=== PATIENT | female | born 1965 | race African-American/Black ===

== ENCOUNTER 2019-09-19 11:22 | Day surgery (SDC) | payer BC ==
[2019-09-18 08:47] VITALS: BMI 50.3
[2019-09-19] MEDS ORDERED: KETOROLAC TROMETHAMINE 30 MG/1 ML VIAL ONE (13:51)
[2019-09-19] MEDS ORDERED: DEXAMETHASONE SOD PHOSPHATE 4 MG/1 ML VIAL ONE (13:51)
[2019-09-19] MEDS ORDERED: MIDAZOLAM HCL 2 MG/2 ML SINGLE DOSE VIAL ONE ×2 (13:51→14:10)
[2019-09-19] MEDS ORDERED: PROPOFOL 20 ML ONE (13:51)
[2019-09-19] MEDS ORDERED: ONDANSETRON 4 MG/2 ML VIAL IVPUSH PRN (14:06)
[2019-09-19] MEDS ORDERED: oxyCODONE HCL 5 MG TABLET PO PRN ×2 (14:06)
[2019-09-19] MEDS ORDERED: LACTATED RINGERS SOLUTION 1,000 ML IV SCH (14:15)
[2019-09-19] MEDS ORDERED: ACETAMINOPHEN 325 MG TABLET (FP) PO PRN (14:38)
[2019-09-19] MEDS ORDERED: IBUPROFEN 400 MG TABLET (FP) PO PRN (14:38)
--- NOTE | 2019-09-19 14:38 | HP ---
Admitting History and Physical - Admission History of Present Illness: 54 yo with hx/o postmenopausal bleeding, ultrasoudn with thickened endometrium Episode of PMB 2018 s/p hysteroscopy D&C with pathology significant for complex hyperplasia with atypia Patient lost to follow up Limitations to Obtaining History: No Limitations - Past Medical History Cardiovascular: Yes: HTN Gastrointestinal: Yes: GERD ...LMP: 03/30/12 Heme/Onc: No: Anemia - Past Surgical History Additional Past Surgical History: hysteroscopy, D&C 2018 - Smoking History Smoking history: Never smoked Have you smoked in the past 12 months: Yes Aproximately how many cigarettes per day: 0 If you are a former smoker, when did you quit?: 30YRS - Alcohol/Substance Use Hx Alcohol Use: No Home Medications - Allergies Allergies/Adverse Reactions: Allergies Allergy/AdvReac Type Severity Reaction Status Date / Time No Known Allergies Allergy Verified 11/07/16 17:20 - Home Medications Home Medications: Ambulatory Orders Pravastatin Sodium [Pravachol -] 40 mg PO HS 03/26/13 Amlodipine Bes/Olmesartan Med [Amlodipine-Olmesartan 10-20 mg] 1 each PO DAILY 05/09/18 Cholecalciferol (Vitamin D3) [Vitamin D3] 1,000 unit PO DAILY 05/09/18 Vitamin B Complex 1 each PO DAILY 09/18/19 Family Medical History Family History: Denies Review of Systems - Review of Systems Constitutional: reports: No Symptoms Cardiovascular: reports: No Symptoms Respiratory: reports: No Symptoms Gastrointestinal: reports: No Symptoms Genitourinary: reports: No Symptoms Musculoskeletal: reports: No Symptoms Integumentary: reports: No Symptoms Endocrine: reports: No Symptoms Psychiatric: reports: No Symptoms Physical Examination Vital Signs: Vital Signs Temperature 97.6 F 09/19/19 12:05 Pulse Rate 81 09/19/19 12:05 Respiratory Rate 20 09/19/19 12:05 Blood Pressure 109/77 09/19/19 12:05 O2 Sat by Pulse Oximetry (%) 96 09/19/19 12:06 Constitutional: Yes: Well Nourished, No Distress, Calm Cardiovascular: Yes: Regular Rate and Rhythm Respiratory: Yes: Regular, CTA Bilaterally Gastrointestinal: Yes: Normal Bowel Sounds, Abdomen, Obese Edema: No Psychiatric: Yes: Alert, Oriented Assessment/Plan 54 yo with PMB for hysteroscopy, D&C 1. Consents reviewed and signed 2. Routine labs reviewed 3. SCDs for DVT prophylaxis 4. No antibiotcs indicated 5. Will proceed to OR
--- NOTE | 2019-09-19 15:24 | OP ---
Operative Note - Note: Operative Date: 09/19/19 Pre-Operative Diagnosis: postmenopausal bleeding, hx/o endometrial hyperplasia with focal atypia Operation: hysteroscopy, dilation and curettage Findings: large endometrial cavity, focal blood vessels noted Post-Operative Diagnosis: Same as Pre-op Surgeon: Lexis Quinn Anesthesiologist/CATEGORY DEVELOPMENT MANAGER: Malini Melgoza Anesthesia: General Specimens Removed: endometrial curetting Estimated Blood Loss (mls): 5 Fluid Volume Replaced (mls): 650 Operative Report Dictated: Yes
[2019-09-19 16:14] VITALS: TEMP 97.6
[2019-09-19 17:50] VITALS: BP 155/81; PULSE 73
--- NOTE | 2019-09-20 08:55 | OP ---
DATE OF OPERATION: 09/19/2019 ATTENDING PHYSICIAN RESPONSIBLE FOR SIGNING REPORT: Jojo Quinn M.D. PREOPERATIVE DIAGNOSIS: Postmenopausal bleeding, prior history of endometrial hyperplasia with focal atypia in 2018. POSTOPERATIVE DIAGNOSIS: Postmenopausal bleeding, prior history of endometrial hyperplasia with focal atypia in 2018. PROCEDURE PERFORMED: Hysteroscopy, dilatation and curettage. SURGEON: Jojo Quinn M.D. ANESTHESIA: General. ANESTHESIOLOGIST: Malini Melgoza MD SPECIMENS REMOVED: Endometrial curetting. ESTIMATED BLOOD LOSS: 5 mL. FLUIDS GIVEN: 650 INDICATIONS: The patient is a 54-year-old with history of postmenopausal bleeding, prior dilatation and curettage in 2018 with endometrial hyperplasia with focal atypia, who was lost to followup. She presented with postmenopausal bleeding. She was counseled regarding observation . The risks, benefits, alternatives and complications of the procedure were discussed, including infection, bleeding, damage to surrounding organs, such as bowel and bladder, uterine perforation. She expressed understanding and was brought to the operating room. DESCRIPTION OF PROCEDURE: When anesthesia was found to be adequate, the patient was prepped and draped in the normal sterile fashion in the dorsal lithotomy position using Pramod stirrups. A weighted speculum was placed in the posterior vagina. The anterior lip of the cervix was grasped using an Allis clamp. The cervix was found to be dilated. The hysteroscope was placed in the endometrial cavity. Fluffy endometrium was noted. Blood vessels were noted. The hysteroscope was removed. Gentle sharp curetting was performed. Symptom was sent to Pathology. All instruments were removed from the patient's vagina. The patient tolerated the procedure well. Estimated blood loss was 5 mL. The patient was brought to the recovery room in stable condition. JOJO QUINN M.D. [id number]
--- NOTE | 2019-09-21 16:59 | PATH ---
Surgical Pathology Report Patient Name: ADRIANA MADISON [facility]. Rec. #: [id number] /Age/Gender: 1965 (Age: 54) / F Account: [id number] Location: [facility] SURGICAL Taken: 09/19/2019 Received: 09/20/2019 Reported: 09/21/2019 Physicians: Lexis Quinn Specimen(s) Received ENDOMETRIAL CURETTINGS Clinical History Postmenopausal bleeding, history of endometrial hyperplasia with focal atypia 05/2018 Final Diagnosis ENDOMETRIAL CURETTINGS, DILATION AND CURETTAGE: COMPLEX HYPERPLASIA WITH FOCAL ATYPIA. Electronically Signed Sis Ribera M.D. Gross Description Received in formalin labeled "endometrial curettings," is a 3.5 x 2.3 x 0.3 cm aggregate of nice-brown soft tissue fragments. The formalin is filtered and the specimen is entirely submitted in 2 cassettes. /09/20/2019 saudi09/20/2019
== END 2019-09-19 17:30 | disposition home or self-care (01) ==
LOC: JASU-SURG 11:22
PROVIDERS: ATTEND Obstetrics & Gynecology
PROC: 0UDB7ZX Extraction of Endometrium, Via Natural or Artificial Opening, Diagnostic (ICD-10-PCS; principal; 2019-09-19 13:30)
PROC: 0UJD8ZZ Inspection of Uterus and Cervix, Via Natural or Artificial Opening Endoscopic (ICD-10-PCS; 2019-09-19 13:30)
DX: N95.0 Postmenopausal bleeding (principal)
CPT/HCPCS: 86850; 86900; 86901; 88305-TC; 94760

== ENCOUNTER 2020-06-23 06:09 | Inpatient (IN) | payer BC ==
[2020-06-23] MEDS ORDERED: BUPIVACAINE HCL/PF 0.25% (2.5MG/ML) 10 ML VIAL ONE (07:10)
[2020-06-23] MEDS ORDERED: MIDAZOLAM HCL 2 MG/2 ML SINGLE DOSE VIAL ONE ×2 (07:17→07:32)
[2020-06-23] MEDS ORDERED: fentaNYL CITRATE 250 MCG/5 ML VIAL ONE (07:17)
[2020-06-23] MEDS ORDERED: PROPOFOL 20 ML ONE ×2 (07:17)
[2020-06-23] MEDS ORDERED: SUCCINYLCHOLINE CHLORIDE 200 MG/10 ML SYRINGE ONE (07:17)
[2020-06-23] MEDS ORDERED: ONDANSETRON 4 MG/2 ML VIAL ONE ×2 (07:17→10:04)
[2020-06-23] MEDS ORDERED: DEXAMETHASONE SOD PHOSPHATE 4 MG/1 ML VIAL ONE ×2 (07:17→10:04)
[2020-06-23] MEDS ORDERED: EPHEDRINE SULFATE/0.9% NACL/PF 50 MG/10 ML SYRINGE NR ONE (07:17)
[2020-06-23] MEDS ORDERED: ROCURONIUM BROMIDE 50 MG/5 ML SYRINGE ONE (07:17)
[2020-06-23] MEDS ORDERED: ceFAZolin SODIUM 1 GM VIAL ONE ×2 (07:18→08:31)
[2020-06-23 07:23] VITALS: BMI 51.1
[2020-06-23] MEDS ORDERED: ROPIVACAINE HCL 0.5% 30ML VIAL ONE (07:33)
[2020-06-23] MEDS ORDERED: BUPIVACAINE HCL/PF 0.25% (2.5MG/ML) 10 ML VIAL IJ ONE ×3 (08:48→09:54)
[2020-06-23] MEDS ORDERED: DESFLURANE GAS 240 ML BOTTLE IH ONE (08:52)
[2020-06-23] MEDS ORDERED: KETOROLAC TROMETHAMINE 30 MG/1 ML VIAL ONE (08:55)
[2020-06-23] MEDS ORDERED: GLYCOPYRROLATE 0.2 MG/1 ML VIAL ONE (09:14)
[2020-06-23] MEDS ORDERED: NEOSTIGMINE METHYLSULFATE 0.5 MG/ML - 10 ML MDV ONE (09:14)
[2020-06-23] MEDS ORDERED: FAMOTIDINE 20 MG/50 ML IVPB 20 MG/50 ML MG IVPB ONE (09:55)
[2020-06-23] MEDS ORDERED: METOCLOPRAMIDE HCL INJECTION 10 MG/2 ML VIAL ONE (09:56)
[2020-06-23] MEDS ORDERED: HYDROmorphone HCL CARPU-JECT 1 MG/1 ML DISP.SYRIN IVPB PRN (10:07)
--- NOTE | 2020-06-23 10:19 | OP ---
Operative Note - Note: Operative Date: 06/23/20 Pre-Operative Diagnosis: Morbid Obesity. Hypertension. Elevated Liver Function Tests Operation: Laparoscopic Vertical Sleeve Gastrectomy. Wedge Biopsy of Left Lobe of Liver. Oversewing of Gastric Staple Line. Diagnostic Laparoscopy Findings: Greater curve sleeve gastrectomy performed with #[address] Gastric staple line oversewn for control of hemostasis and to prevent leaks Wedge biopsy performed on enlarged left lobe of liver Post-Operative Diagnosis: Same as Pre-op (hepatomegaly) Surgeon: Steve Burks Rec Therapist: Reuben Chew Anesthesia: General Specimens Removed: Greater curve of stomach. Wedge biopsy on enlarged left lobe of liver Estimated Blood Loss (mls): 30 Operative Report Dictated: Yes
[2020-06-23] MEDS: METOCLOPRAMIDE HCL INJECTION 10 MG/2 ML VIAL IVPUSH SCH ×3 (10:35→21:21)
[2020-06-23] MEDS ORDERED: FAMOTIDINE 20 MG PREMIXED IVPB IVPB ONE (10:45)
[2020-06-23 11:11] LABS: HEMATOCRIT 42.9 % (32.4-45.2); HEMOGLOBIN 13.9 GM/dl (10.7-15.3); MCH 28.9 pg (25.7-33.7); MCHC 32.5 g/dl (32.0-36.0); MEAN CELL VOLUME 88.8 fl (80-96); MEAN PLT VOLUME 8.6 fl (7.5-11.1); PLATELET COUNT 256 K/MM3 (134-434); RBC 4.82 M/mm3 (3.60-5.2); RDW 12.1 % (11.6-15.6); WHITE BLOOD COUNT 12.2 K/mm3 (4.0-10.8)
[2020-06-23] MEDS ORDERED: HYDROmorphone HCL 0.5 MG/0.5 ML SYRINGE IVPB PRN (11:18)
[2020-06-23 11:28] LABS: ALBUMIN 3.5 g/dl (3.4-5.0); BILIRUBIN,TOTAL 0.9 mg/dl (0.2-1); CALCIUM 8.4 mg/dl (8.5-10); POTASSIUM 4.9 mmol/L (3.5-5.1); TOT PROT 6.9 g/dl (6.4-8.2)
[2020-06-23] MEDS: ONDANSETRON 4 MG/2 ML VIAL IVPUSH PRN (14:13)
[2020-06-23] MEDS: HYDROmorphone HCL/PF 1 MG/ML VIAL IVPB PRN ×2 (14:13→22:05)
[2020-06-23] MEDS: SODIUM CHLORIDE 1,000 ML IV SCH (14:18)
--- NOTE | 2020-06-23 17:18 | HP ---
Admitting History and Physical - Admission History of Present Illness: s/p sleeve - Past Medical History Cardiovascular: Yes: HTN Gastrointestinal: Yes: GERD ...LMP: 03/30/12 - Past Surgical History Past Surgical History: Yes: None - Smoking History Smoking history: Never smoked Have you smoked in the past 12 months: No Aproximately how many cigarettes per day: 0 If you are a former smoker, when did you quit?: 30YRS - Alcohol/Substance Use Hx Alcohol Use: No Home Medications - Allergies Allergies/Adverse Reactions: Allergies Allergy/AdvReac Type Severity Reaction Status Date / Time No Known Allergies Allergy Verified 11/07/16 17:20 - Home Medications Home Medications: Ambulatory Orders Cholecalciferol (Vitamin D3) [Vitamin D3] 1,000 unit PO DAILY 05/09/18 Amlodipine Bes/Olmesartan Med [Amlodipine-Olmesartan 5-40 mg] 1 each PO DAILY 06/19/20 Oxycodone HCl/Acetaminophen [Percocet 5-325 mg Tablet] 1 tab PO Q6H PRN #20 tablet MDD 4 06/23/20 Physical Examination Vital Signs: Vital Signs Temperature 98.4 F 06/23/20 11:40 Pulse Rate 92 H 06/23/20 11:40 Respiratory Rate 16 06/23/20 11:40 Blood Pressure 143/79 06/23/20 11:40 O2 Sat by Pulse Oximetry (%) 99 06/23/20 11:40 Cardiovascular: Yes: Regular Rate and Rhythm Respiratory: Yes: Regular, CTA Bilaterally Gastrointestinal: Yes: Soft, Tenderness Edema: No Labs: CBC, BMP 06/23/20 10:15 06/23/20 10:15 Problem List - Problems (1) S/P laparoscopic sleeve gastrectomy Assessment/Plan: Operative Date: 06/23/20 Pre-Operative Diagnosis: Morbid Obesity. Hypertension. Elevated Liver Function Tests Operation: Laparoscopic Vertical Sleeve Gastrectomy. Wedge Biopsy of Left Lobe of Liver. Oversewing of Gastric Staple Line. Diagnostic Laparoscopy Findings: Greater curve sleeve gastrectomy performed with #[address] Gastric staple line oversewn for control of hemostasis and to prevent leaks Wedge biopsy performed on enlarged left lobe of liver Post-Operative Diagnosis: Same as Pre-op (hepatomegaly) Surgeon: Steve Burks Embossing Machine Operator: Reuben Chew Code(s): Z98.84 - BARIATRIC SURGERY STATUS (2) HTN (hypertension) Assessment/Plan: monitor off meds Code(s): I10 - ESSENTIAL (PRIMARY) HYPERTENSION (3) GERD (gastroesophageal reflux disease) Assessment/Plan: same Code(s): K21.9 - GASTRO-ESOPHAGEAL REFLUX DISEASE WITHOUT ESOPHAGITIS (4) Obesity Code(s): E66.9 - OBESITY, UNSPECIFIED
--- NOTE | 2020-06-23 18:54 | OP ---
DATE OF OPERATION: 06/23/2020 PREOPERATIVE DIAGNOSIS: 1. Morbid obesity. 2. Hypertension. 3. Elevated liver function tests. POSTOPERATIVE DIAGNOSIS: 1. Morbid obesity. 2. Hypertension. 3. Elevated liver function tests. 4. Hepatomegaly. PROCEDURE: 1. Laparoscopic vertical sleeve gastrectomy. 2. Wedge biopsy of enlarged left lobe of liver. 3. Hepatomegaly. 4. Diagnostic laparoscopy. OPERATING SURGEON: Steve Burks MD. CRUSHER AND BLENDER OPERATOR: Reuben Chew MD. ANESTHESIA: General. OPERATIVE PROCEDURE: The patient was brought into the operating room, placed on the OR table in the supine position. All precautions were taken initially including padding for the back and the feet, and Venodyne boots were placed on both lower extremities. At that point, the abdomen was prepped and draped in the usual manner. A Veress needle was placed in the midline above the umbilicus, and a pneumoperitoneum was established. At this juncture, with direct vision with a laparoscopic camera through a trocar, a number 5 bladeless trocar in the left upper quadrant through which a trocar laparoscopic camera was placed. Under direct vision, a number 15 bladeless trocar was in the midline in the supraumbilical position, and this was followed by a number 5 bladeless trocar in the right upper quadrant and then number 5 bladeless trocar below the left costal margin. A Daija liver retractor was then placed in the epigastrium to retract the left lobe of the liver. The patient was then placed in 20-degree reverse Trendelenburg position by anesthesia. The pylorus was noted on the distal stomach, and from that point 6 cm were measured proximally. Here, the operating surgeon lifted the stomach toward the anterior abdominal wall, as the medical assistant ob gyn surgeon retracted the gastrocolic ligament inferiorly. The Ligasure device was then used to dissect the gastrocolic ligament and the short gastric vessel off the greater curve of the stomach. This continued in a superior and vertical direction until the final short gastric vessel between the superior pole of the spleen and the proximal fundus was divided. At this juncture, anesthesia advanced the number 36 bougie. This was advanced into the distal stomach or into the antrum of the stomach. With the bougie held along the lesser curvature with a guide, a series of rashida were performed with the first 2 rashida being black load rashida 6 cm in length along the bougie. This was followed by a series of purple load rashida also 6 cm in length and also along the bougie, when final staple was fired in the left upper quadrant the greater curve was now completely detached from the lesser curve. It should be noted that prior to firing rashida, both the anterior and posterior mack were checked that they were equal, and in the area of the esophagogastric junction approximately 1 to 1.5 cm serosa remained on the anterior and posterior surfaces. At this juncture, anesthesia inserted air into the orogastric tube, and saline was placed around the staple line. When anesthesia inserted air, it showed the entire stomach distended, no obstruction and no leaks were noted from the staple line. As anesthesia decompressed the stomach through the bougie tube, there were noted to be a few bleeding point on the stomach in the proximal, mid, and distal portion. Therefore, the was used to oversew the staple line from the proximal fundus all the way down to the antrum for the complete staple line. This was done for further hemostasis and also to prevent any chance of leak. This was done, hemostasis was achieved. Surgicel was then placed over the staple line and over the remaining fat and short gastric vessels that were dissected. At this juncture, attention was directed to the left lobe of the liver and noted that the patient had elevated LFTs prior to surgery. It was decided that wedge biopsy would be performed. The LigaSure device was used to dissect a triangular piece of stomach off the inferior edge of the left lobe of the liver. This was then sent off the field as specimen to pathology, and there was minor oozing from the parenchyma of the liver, but this was easily controlled with electrocautery. At this juncture, the resected greater curvature was now removed through the number 15 trocar site and sent off the field as specimen to pathology. The number 15 trocar site was closed with the endo closure device to prevent internal hernia and prevent bleeding. Under direct vision, all trocars were removed and pneumoperitoneum released. All trocar sites injected with 0.25% Marcaine, then number 15 midline trocar was closed with 3-0 Vicryl on subcutaneous tissue, then all trocar sites were closed with 4-0 Biosyn in subcuticular fashion. Dressings were applied, patient awoken from anesthesia and transferred out of the operation room to the recovery room in stable condition. ANESTHESIA: General. SURGEON: Steve Burks MD. CRUSHER AND BLENDER OPERATOR SURGEON: Reuben Chew MD. ESTIMATED BLOOD LOSS: Estimated blood loss was 30 mL. DISPOSITION: Patient transferred to recovery room in stable condition. Vandana ZAMBRANO/[id number]
[2020-06-23 20:43] LABS: HEMATOCRIT 44.4 % (32.4-45.2); HEMOGLOBIN 14.7 GM/dl (10.7-15.3); MCH 29.3 pg (25.7-33.7); MCHC 33.1 g/dl (32.0-36.0); MEAN CELL VOLUME 88.4 fl (80-96); MEAN PLT VOLUME 8.1 fl (7.5-11.1); PLATELET COUNT 262 K/MM3 (134-434); RBC 5.02 M/mm3 (3.60-5.2); RDW 11.9 % (11.6-15.6); WHITE BLOOD COUNT 10.6 K/mm3 (4.0-10.8)
[2020-06-23 20:51] LABS: ALBUMIN 3.7 g/dl (3.4-5.0); BILIRUBIN,TOTAL 0.5 mg/dl (0.2-1); CALCIUM 8.7 mg/dl (8.5-10); CREATININE 0.8 mg/dl (0.55-1.3); POTASSIUM 4.4 mmol/L (3.5-5.1); TOT PROT 7.3 g/dl (6.4-8.2)
[2020-06-23] MEDS: FAMOTIDINE 20 MG/50 ML IVPB 20 MG/50 ML MG IVPB SCH (21:11)
[2020-06-24] MEDS: METOCLOPRAMIDE HCL INJECTION 10 MG/2 ML VIAL IVPUSH SCH ×2 (03:29→10:33)
[2020-06-24] MEDS: ONDANSETRON 4 MG/2 ML VIAL IVPUSH PRN (04:07)
[2020-06-24] MEDS: HYDROmorphone HCL/PF 1 MG/ML VIAL IVPB PRN (04:07)
[2020-06-24 06:48] VITALS: BP 114/63; PULSE 94; TEMP 98.7
--- NOTE | 2020-06-24 08:19 | PN ---
Progress Note, Physician History of Present Illness: sitting in chair - Current Medication List Current Medications: Active Medications Hydromorphone HCl (Dilaudid -) 1 mg IVPB Q4H PRN PRN Reason: PAIN LEVEL 6-10 Last Admin: 06/24/20 04:07 Dose: 1 mg Documented by: Hydromorphone HCl (Dilaudid) 0.5 mg IVPB Q4H PRN PRN Reason: PAIN LEVEL 1-5 Famotidine/Sodium Chloride (Pepcid 20 Mg Premixed Ivpb -) 20 mg in 50 mls @ 100 mls/hr IVPB BID LAKSHMI Last Admin: 06/23/20 21:11 Dose: 100 mls/hr Documented by: Sodium Chloride (Normal Saline -) 1,000 mls @ 150 mls/hr IV ASDIR LAKSHMI Last Admin: 06/23/20 14:18 Dose: Not Given Documented by: Metoclopramide HCl (Reglan Injection -) 10 mg IVPUSH Q6H LAKSHMI Last Admin: 06/24/20 03:29 Dose: 10 mg Documented by: Ondansetron HCl (Zofran Injection) 4 mg IVPUSH Q4H PRN PRN Reason: NAUSEA AND/OR VOMITING Last Admin: 06/24/20 04:07 Dose: 4 mg Documented by: - Objective Vital Signs: Vital Signs Temperature 98.7 F 06/24/20 06:00 Pulse Rate 94 H 06/24/20 06:00 Respiratory Rate 16 06/24/20 06:00 Blood Pressure 114/63 06/24/20 06:00 O2 Sat by Pulse Oximetry (%) 97 06/24/20 06:00 Cardiovascular: Yes: Regular Rate and Rhythm Respiratory: Yes: Regular, CTA Bilaterally Gastrointestinal: Yes: Soft, Tenderness Labs: CBC, BMP 06/23/20 20:30 06/23/20 20:30 Problem List - Problems (1) S/P laparoscopic sleeve gastrectomy Assessment/Plan: Operative Date: 06/23/20 Pre-Operative Diagnosis: Morbid Obesity. Hypertension. Elevated Liver Function Tests Operation: Laparoscopic Vertical Sleeve Gastrectomy. Wedge Biopsy of Left Lobe of Liver. Oversewing of Gastric Staple Line. Diagnostic Laparoscopy Findings: Greater curve sleeve gastrectomy performed with #[address] Gastric staple line oversewn for control of hemostasis and to prevent leaks Wedge biopsy performed on enlarged left lobe of liver Post-Operative Diagnosis: Same as Pre-op (hepatomegaly) Surgeon: Steve Burks System Configuration Specialist: Reuben Chew Code(s): Z98.84 - BARIATRIC SURGERY STATUS (2) HTN (hypertension) Assessment/Plan: monitor off meds Selected Entries 06/24/20 06/24/20 01:54 06:00 Blood Pressure 130/71 114/63 Code(s): I10 - ESSENTIAL (PRIMARY) HYPERTENSION (3) GERD (gastroesophageal reflux disease) Assessment/Plan: same Code(s): K21.9 - GASTRO-ESOPHAGEAL REFLUX DISEASE WITHOUT ESOPHAGITIS (4) Obesity Assessment/Plan: as above Code(s): E66.9 - OBESITY, UNSPECIFIED
[2020-06-24 08:26] LABS: HEMATOCRIT 41.5 % (32.4-45.2); HEMOGLOBIN 13.4 GM/dl (10.7-15.3); MCH 28.6 pg (25.7-33.7); MCHC 32.4 g/dl (32.0-36.0); MEAN CELL VOLUME 88.2 fl (80-96); MEAN PLT VOLUME 8.2 fl (7.5-11.1); PLATELET COUNT 266 K/MM3 (134-434); RDW 11.7 % (11.6-15.6); WHITE BLOOD COUNT 11.8 K/mm3 (4.0-10.8)
[2020-06-24 08:38] LABS: ALBUMIN 3.3 g/dl (3.4-5.0); BILIRUBIN,TOTAL 0.7 mg/dl (0.2-1); CALCIUM 8.5 mg/dl (8.5-10); CREATININE 0.8 mg/dl (0.55-1.3); TOT PROT 6.5 g/dl (6.4-8.2)
[2020-06-24] MEDS: FAMOTIDINE 20 MG/50 ML IVPB 20 MG/50 ML MG IVPB SCH (10:33)
[2020-06-24] MEDS: SODIUM CHLORIDE 1,000 ML IV SCH (10:34)
[2020-06-24] MEDS ORDERED: oxyCODONE HCL 5 MG TABLET PO PRN (13:04)
[2020-06-24] MEDS ORDERED: ACETAMINOPHEN 325 MG TABLET (FP) PO PRN (13:04)
--- NOTE | 2020-06-24 13:09 | PN ---
Progress Note (short form) - Note Progress Note: POD#1 Afebrile;VSS Pt doing well Tolerating PO clear liquids- 2 oz PO TID No N/V P/E- Abd- midline trocar incision with dried blood band-aid changed Ext- no swelling, no edema UGI- no leak, no obstruction WBC-11.8 H/H-13.4/41.5 P- PO clear liquids- 2 oz PO TID Pt given home instructions D/C pt home today
[2020-06-24] MEDS ORDERED: SODIUM CHLORIDE 1,000 ML IV SCH (13:15)
--- NOTE | 2020-06-24 14:15 | PN ---
Progress Note (short form) - Note Progress Note: Anesthesia postop note 55 y/o F s/p GA for gastric sleeve POD#1, vss, aaox3, pain well controlled, to be leaving the hospital soon. No anesthesia complications.
--- NOTE | 2020-06-24 14:30 | DS ---
DATE OF ADMISSION: 06/23/2020 DATE OF DISCHARGE: 06/24/2020 HOSPITAL COURSE: The patient is a 55-year-old woman who was admitted to [facility] on June 23, 2020, with a history of morbid obesity in order to have an elective sleeve gastrectomy surgery. The details of the operation are described in the operative note of that day, but postoperatively patient was sent to recovery room where she was stabilized and then sent to the floor. She remained on the floor n.p.o. and on a change control coordinator and saw her pulse rate between 84 and 100 most of the first 24 hours. Her blood pressure remained normal during that time. She also was noted to have normal laboratory values after surgery and also the night of surgery or approximately 10 hours after surgery. The patient was noted to have stable hemoglobin of 14.7 and hematocrit 44.4. The patient had 2 very minor episodes of vomiting and did complain of nausea on and off through the night, for which she was medicated. On the morning of June 24, 2020, she was brought to x-ray where Gastrografin swallow showed no signs of any leak and no obstruction in the stomach. The patient at this time was feeling much better, with no further nausea or vomiting reported. She was begun on 2 ounces of clear liquid which she tolerated well. Her bloodwork from that morning showed her hemoglobin stable at 13.4 and hematocrit at 41.5. The patient was ambulating without any difficulty and was given full instructions for discharge home. The patient will now be discharged home on the afternoon of June 24, 2020, with instructions to follow up with the bariatric service in 9 days. Vandana [id number] cc: Clarissa Alcantar MD
--- NOTE | 2020-06-24 14:55 | OP ---
DATE OF OPERATION: 06/23/2020 PREOPERATIVE DIAGNOSES: 1. Morbid obesity. 2. Hypertension. 3. Elevated liver function tests. POSTOPERATIVE DIAGNOSES: 1. Morbid obesity. 2. Hypertension. 3. Elevated liver function tests. 4. Hepatomegaly. PROCEDURES PERFORMED: 1. Laparoscopic vertical sleeve gastrectomy. 2. Wedge biopsy of enlarged left lobe of the liver. 3. Oversewing of gastric staple line. 4. Diagnostic laparoscopy. OPERATING SURGEON: Steve Burks MD CONSTRUCTION ELECTRICIAN: Reuben Chew MD ANESTHESIA: General. EXPECTED BLOOD LOSS: 30 mL. DESCRIPTION OF PROCEDURE: The patient was brought into the operating room, placed on the OR table in the supine position. All precautions were taken initially including padding for the back and the feet, and Venodyne boots were placed on both lower extremities. At that point the abdomen was prepped and draped in the usual manner. A Veress needle was placed in the midline above the umbilicus, and a pneumoperitoneum was established. At this juncture, with direct vision with the laparoscopic camera through a trocar, No. 5 bladeless trocar was placed in the left upper quadrant, through which a laparoscopic camera was placed. Under direct vision, a No. 15 bladeless trocar was placed in the midline in the supraumbilical position, and this was followed by a No. 5 bladeless trocar in the right upper quadrant and a No. 5 bladeless trocar below the left costal margin. A Daija liver retractor was then placed in the epigastrium to retract the left lobe of the liver. The patient was then placed in a 20-degree reverse Trendelenburg position by Anesthesia. The pylorus was noted on distal stomach, and from that point, 6 cm was measured proximally. Here the operating surgeon lifted the stomach toward the anterior abdominal wall as the first assistant manager surgeon retracted the gastrocolic ligament inferiorly. The LigaSure device was then used to dissect the gastrocolic ligament and the short gastric vessels off the greater curve of the stomach. This continued in a superior and vertical direction until the final short gastric vessel between the superior pole, spleen, and the proximal fundus was divided. At this juncture, Anesthesia advanced a No. 36 bougie. This was advanced into the distal stomach or into the antrum of the stomach. With the bougie held along the lesser curvature with a guide, a series of rashida was performed, with the first 2 rashida being black load rashida 6 cm in length along the bougie. This was followed by a series of purple load rashida also 6 cm in length and also along the bougie, and when the final staple was fired in the left upper quadrant, the greater curve was now completely detached from the lesser curve. It should be noted that prior to firing all rashida that both the anterior and posterior mack were checked that they were equal, and an area of the esophagogastric junction approximately 1-1.5 cm of serosa remained on the anterior and posterior surfaces. At this juncture, Anesthesia inserted air into the orogastric tube, and saline was placed around the staple line. When Anesthesia inserted air, it showed the entire stomach distended, so no obstruction was noted and no leaks were noted from the staple line. As Anesthesia decompressed the stomach through the bougie tube, there were noted to be a few bleeding points on the stomach in the proximal, mid, and distal portion. Therefore, the endo stitch was used to oversew the staple line from the proximal fundus all the way down to the antrum, and therefore the complete staple line was oversewn. This was done for further hemostasis, also to prevent any chance of leakage. This was done. Hemostasis was then achieved. Surgicel was then placed over the staple line and over the remaining fat and short gastric vessel that was dissected off the greater curve. At this juncture, attention was directed to the left lobe of the liver and noted that the patient had elevated LFTs prior to surgery. It was decided that a wedge biopsy would be performed. The LigaSure device was used to dissect a triangular piece of liver off of the inferior edge of the left lobe of the liver. This was sent off the field as a specimen to pathology, and there was minor oozing from the parenchyma of the liver, but this was easily controlled with electrocautery. At this juncture, the resected greater curve was now removed through the No. 15 trocar site, handed off the field as a specimen to pathology with the wedge biopsy of the liver. The No. 15 trocar site was closed with the endo closure device to prevent internal hernia and prevent bleeding. Under direct vision, all trocars were removed and the pneumoperitoneum was released. All trocar sites were injected with 0.25% Marcaine, and then the No. 15 midline trocar was closed with 3-0 Vicryl in the subcutaneous tissue, and then all trocar sites were closed with 4-0 Biosyn in subcuticular fashion. Dressings were applied, the patient woken from anesthesia and transferred out of the operating room to the recovery room in stable condition. Vandana [id number]
--- NOTE | 2020-06-27 16:04 | PATH ---
Surgical Pathology Report Patient Name: ADRIANA MADISON Med. Rec. #: [id number] /Age/Gender: 1965 (Age: 55) / F Account: [id number] Location: [facility] MED-SURG Taken: 06/23/2020 Received: 06/23/2020 Reported: 06/27/2020 Physicians: Steve Burks M.D. Specimen(s) Received A: GREATER CURVATURE OF STOMACH B: LIVER BIOPSY Clinical History Morbid obesity Final Diagnosis A. GREATER CURVATURE OF STOMACH, LAPAROSCOPIC GASTRIC SLEEVE EXCISION: MODERATE CHRONIC GASTRITIS. 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 B. LIVER, BIOPSY: LIVER SHOWING MILD STEATOSIS (7-8 %) WITH PATCHY MILD STEATOHEPATITIS (GRADE 1). TRICHROME STAIN SHOWS NO APPRECIABLE INCREASE IN FIBROSIS. IRON STAIN SHOWS NO STAINABLE IRON DEPOSITS. Comment: The Non-Alcoholic Steatosis (BHAVANI) score is 2/8 (steatosis: 1/3; lobular inflammation: 1/3; hepatocyte balloonin/2). The fibrosis stage is 0/4. Scoring interpretation: Total BHAVANI score represents the sum of scores for steatosis, lobular inflammation and ballooning, and ranges from 0-8. In the reference study, BHAVANI scores of 0-2 occurred in cases largely considered not diagnostic of Non-Alcoholic Steatohepatitis (PEREZ), scores of 3-4 were evenly divided among those considered not diagnostic, borderline or positive for PEREZ. Scores of 5-8 occurred in cases that were largely considered diagnostic of PEREZ. Reference: Judy Nunn. & Phill Cisneros, et al; Design and validation of a histological scoring system for non-alcoholic fatty liver disease: Hepatology 41:[id number],2005. Electronically Signed Rubia Sanchez M.D. Gross Description A. Received in formalin, labeled "greater curvature of stomach," is a 71 gram, 17.0 x 2.8 x 2.2 cm. portion of stomach with a stapled margin of resection. The serosa is nice-rodriguez with minimal attached fat. The mucosa is nice-pink with normal folds. No mucosal masses are identified. Consumer Educator sections are submitted in one cassette. B. Received in formalin labeled "liver biopsy," is a 2.0 x 0.9 x 0.4 cm nice, irregular portion of soft tissue, consistent with a liver biopsy. The specimen is bisected and entirely submitted in one cassette. 06/24/2020 [facility]06/24/2020
== END 2020-06-24 14:28 | disposition home or self-care (01) | DRG 621 ==
LOC: FM/S 06:09
PROVIDERS: ADMIT Surgery; ATTEND Surgery
PROC: 0FB24ZX Excision of Left Lobe Liver, Percutaneous Endoscopic Approach, Diagnostic (ICD-10-PCS; 2020-06-23)
PROC: 0DB64Z3 Excision of Stomach, Percutaneous Endoscopic Approach, Vertical (ICD-10-PCS; principal; 2020-06-23 08:39)
DX: E66.01 Morbid (severe) obesity due to excess calories (principal); Z68.43 Body mass index [BMI] 50.0-59.9, adult; I10 Essential (primary) hypertension; R16.0 Hepatomegaly, not elsewhere classified; K21.9 Gastro-esophageal reflux disease without esophagitis
CPT/HCPCS: 36415; 74240-TC-FY; 80053; 85027; 86850; 86900; 86901; 88305-TC; 94760